=== PATIENT | female | born 1995 | race Caucasian/White ===

== ENCOUNTER 2016-07-12 14:27 | Outpatient (CLI) | payer OTHER ==
--- NOTE | 2016-07-12 15:53 | DIAGNOSTIC IMAGING REPORT ---
PROCEDURE: US COMPLETE PELVIC W/TRANSVAG INDICATION: PELVIC PAIN TECHNIQUE: Transabdominal and endovaginal scanlon scale and color Doppler sonographic images of the female pelvis were obtained. COMPARISON: None. FINDINGS: TRANSABDOMINAL SCANS: The uterus is of normal size 5.3 x 5.1 x 3.3 cm Kidneys are normal. TRANSVAGINAL SCANS: The uterus is anteverted. Myometrium is normal. The endometrium is thin and measures 2.8 mm. Right ovary is normal measuring 4.8 x 3.8 x 2.6 cm. There is a 3.9 cm hemorrhagic cyst on the right ovary. Good arterial and venous flow was noted. The left ovary is normal measuring 2.5 x 1.3 x 1.5. Again good arterial flow was noted. There is a trace of free fluid. IMPRESSION: 1. 3.9 cm hemorrhagic cyst on the right ovary. 2. 2.8 mm endometrium.
== END 2016-07-12 23:00 ==
LOC: US SRH 14:27
DX: N83.201 Unspecified ovarian cyst, right side (principal)